=== PATIENT | female | born 1960 | race Caucasian/White ===

== ENCOUNTER → 2017-07-03 16:55 | Outpatient (CLI) | payer MEDICARE ==
[2015-06-14 13:39] VITALS: BMI 31.3
[~2017-07-03 16:55] MED LIST: AGGRENOX 200/251 CAP PO; BENADRYL25 MG PO; CATAPRES0.2 MG PO; CELEXA20 MG PO; CLEOCIN HCL300 MG PO; COREG25 MG PO; CRESTOR10 MG PO; CRESTOR20 MG PO; GABAPENTIN100 MG PO; GLIPIZIDE10 MG PO; HYDRALAZINE HCL25 MG PO; JANUVIA100 MG PO; LEVEMIR100 U/M1 SQ; MEDROL DOSE PACK4 MG PO; MUCINEX DM ER1 EAC1 PO; NORVASC10 MG PO; VALIUM5 MG PO; ZESTRIL40 MG PO
== END | disposition home or self-care (01) ==
LOC: D.US 16:30
DX: M79.662 Pain in left lower leg (principal)

== ENCOUNTER → 2017-10-17 09:20 | Outpatient (CLI) | payer MEDICARE ==
[2015-06-14 13:39] VITALS: BMI 31.3
== END | disposition home or self-care (01) ==
LOC: D.MRI 09:20
DX: M79.672 Pain in left foot (principal)

== ENCOUNTER 2018-02-17 00:25 | Emergency (ER) | payer MEDICARE, MEDICAID ==
[2015-06-14 13:39] VITALS: BMI 31.3
[~2018-02-17 00:25] MED LIST changes: -CRESTOR10 MG PO; +LEVEMIR100 U/M1 SC; -LEVEMIR100 U/M1 SQ
[2018-02-17 00:51] LABS: HEMATOCRIT 40.1 % (36.0-48.0); HEMOGLOBIN 13.7 g/dL (12-16); LYMPHOCYTES 39.9 % (15-50); MCH 31.6 pg (26.0-34.0); MCHC 34.2 g/dL (31.0-37.0); MCV 92.4 fL (80.0-100.0); MEAN PLATELET VOLUME 8.6 fL (7.4-10.4); NEUTROPHILS 43.4 % (40-80); PLATELET COUNT 270 10x3/uL (130-400); RBC 4.34 10x6/uL (4.00-5.40); RDW 11.7 % (11.5-14.5); WBC 6.7 10x3/uL (4.8-10.8)
[2018-02-17 01:12] LABS: ALBUMIN 3.8 g/dL (3.4-5.0); ANION GAP 14.2 mmol/L (8-16); BILIRUBIN - TOTAL 0.42 mg/dL (0.2-1.3); CALCIUM 9.5 mg/dL (8.5-10.1); CARBON DIOXIDE 28.6 mmol/L (21.0-32.0); CREATININE - SERUM 1.2 mg/dL (0.6-1.3); POTASSIUM - SERUM 3.8 mmol/L (3.5-5.1); PROTEIN - SERUM 8.1 g/dL (6.4-8.2)
[2018-02-17 01:38] LABS: APPEARANCE CLOUDY (CLEAR); BILIRUBIN NEGATIVE (NEGATIVE); COLOR YELLOW (YELLOW); GLUCOSE 500 mg/dL (NEGATIVE); KETONE NEGATIVE (NEGATIVE); NITRITE NEGATIVE (NEGATIVE); PROTEIN NEGATIVE (NEGATIVE); UROBILINOGEN NORMAL (NORMAL)
[2018-02-17 01:39] LABS: BACTERIA MANY /hpf (NONE SEEN); HYALINE CAST 0-5 /lpf (NONE SEEN); MUCUS <1+ /lpf (NONE SEEN); RED CELLS - URINE 0-5 /hpf (0-5); WHITE CELLS - URINE 0-5 /hpf (0-5)
[2018-03-17] MEDS ORDERED: COREG25 MG PO (10:54)
[2018-03-17] MEDS ORDERED: AGGRENOX 200/251 CAP PO (10:55)
[2018-03-17] MEDS ORDERED: TRICOR145 MG PO (10:56)
[2018-03-17] MEDS ORDERED: BENADRYL25 MG PO (10:57)
== END 2018-02-17 05:05 | disposition home or self-care (01) ==
LOC: D.ER 00:25
PROVIDERS: Family Medicine
DX: K52.9 Noninfective gastroenteritis and colitis, unspecified (principal); I10 Essential (primary) hypertension; E11.9 Type 2 diabetes mellitus without complications; Z79.4 Long term (current) use of insulin; Q61.3 Polycystic kidney, unspecified

== ENCOUNTER 2018-03-18 07:45 | Day surgery (SDC) | payer MEDICARE ==
[2018-03-17 11:43] LABS: HEMOGLOBIN 12.2 g/dL (12-16); MCH 31.9 pg (26.0-34.0); MCHC 33.9 g/dL (31.0-37.0); MEAN PLATELET VOLUME 9.5 fL (7.4-10.4); RBC 3.83 10x6/uL (4.00-5.40); RDW 12.5 % (11.5-14.5); WBC 7.3 10x3/uL (4.8-10.8)
[2018-03-17 12:02] LABS: ANION GAP 14.1 mmol/L (8-16); CARBON DIOXIDE 28.5 mmol/L (21.0-32.0); CREATININE - SERUM 1.1 mg/dL (0.6-1.3); POTASSIUM - SERUM 4.6 mmol/L (3.5-5.1)
[~2018-03-18] VITALS: Ht 152.4 cm; Wt 60.8 kg
[~2018-03-18 07:45] MED LIST changes: +TRICOR145 MG PO
[2018-03-18 09:09] VITALS: BP 104/63; Ht 152.4 cm; Wt 60.8 kg
[2018-03-18] MEDS ORDERED: HYDROCODON-ACE1 EAC7 PO (13:54)
== END 2018-03-18 18:50 | disposition home or self-care (01) ==
LOC: D.OPS 07:45 → D.PAN 13:30 → D.OPS 18:50
PROVIDERS: Anesthesiology
DX: K80.10 Calculus of gallbladder with chronic cholecystitis without obstruction (principal); I10 Essential (primary) hypertension; E11.9 Type 2 diabetes mellitus without complications; Z01.812 Encounter for preprocedural laboratory examination

== ENCOUNTER 2018-10-19 20:30 | Observation (INO) | payer MEDICARE ==
[~2018-10-19] VITALS: Ht 152.4 cm; Wt 59.8 kg
[~2018-10-19 20:30] MED LIST changes: +HYDROCODON-ACE1 EAC7 PO
[2018-10-19 20:55] LABS: BASOPHILS 0.3 % (0-2); EOSINOPHILS 1.9 % (0-7); HEMATOCRIT 39.5 % (36.0-48.0); HEMOGLOBIN 13.3 g/dL (12-16); IMMATURE GRANULOCYTES 0.3 % (0-5); LYMPHOCYTES 32.8 % (15-50); MCHC 33.7 g/dL (31.0-37.0); MEAN PLATELET VOLUME 9.6 fL (7.4-10.4); MONOCYTES 6.6 % (2-11); NEUTROPHILS 58.1 % (40-80); PLATELET COUNT 256 10x3/uL (130-400); RBC 4.16 10x6/uL (4.00-5.40); RDW 11.9 % (11.5-14.5); WBC 7.3 10x3/uL (4.8-10.8)
[2018-10-19 21:03] LABS: APPEARANCE CLOUDY (CLEAR); COLOR DK YELLOW (YELLOW); NITRITE NEGATIVE (NEGATIVE); PROTEIN TRACE mg/dL (NEGATIVE); SPECIFIC GRAVITY 1.025 (1.005-1.020)
[2018-10-19 21:04] LABS: BILIRUBIN NEGATIVE (NEGATIVE); GLUCOSE 1000 mg/dL (NEGATIVE); KETONE NEGATIVE (NEGATIVE); UROBILINOGEN NORMAL (NORMAL)
[2018-10-19 21:06] LABS: BACTERIA FEW /hpf (NONE SEEN)
[2018-10-19 21:07] LABS: ALBUMIN 3.8 g/dL (3.4-5.0); ANION GAP 15.3 mmol/L (8-16); BILIRUBIN - TOTAL 0.16 mg/dL (0.2-1.3); CALCIUM 9.3 mg/dL (8.5-10.1); CARBON DIOXIDE 25.9 mmol/L (21.0-32.0); CREATININE - SERUM 0.9 mg/dL (0.6-1.3); POTASSIUM - SERUM 4.2 mmol/L (3.5-5.1); PROTEIN - SERUM 7.5 g/dL (6.4-8.2)
[2018-10-19 21:07] LABS: HYALINE CAST 0-5 /lpf (NONE SEEN)
[2018-10-19 21:20] LABS: UDS - AMPHET NEGATIVE QUAL (NEGATIVE); UDS - BARB NEGATIVE QUAL (NEGATIVE); UDS - BENZO POSITIVE QUAL (NEGATIVE); UDS - COCAINE NEGATIVE QUAL (NEGATIVE); UDS - OPIATE NEGATIVE QUAL (NEGATIVE); UDS - PCP NEGATIVE QUAL (NEGATIVE); UDS - THC NEGATIVE QUAL (NEGATIVE)
[2018-10-20] VITALS (14 sets, daily range): BP systolic 100–158; BP diastolic 54–154; Ht 152.4 cm; Wt 59.8 kg
[2018-10-20] MEDS ORDERED: LEVOFLOXACIN500 MG PO (13:43)
--- NOTE | 2018-10-21 17:30 | CN ---
PATIENT NAME:NELSON ALFREDO MEDICAL RECORD: [id number] : 64 LOCATION:[id number] ADMIT DATE: 10/19/18 ACCOUNT: [id number] CONSULTING PHYSICIAN: NICANOR RYAN MD REFERRING PHYSICIAN: INDU LOCKETT MD DATE OF CONSULTATION: 10/20/2018 IDENTIFYING DATA: The patient is a 58-year-old and she is admitted to the hospital on a voluntary basis. CHIEF COMPLAINT: Overdose. HISTORY OF PRESENT ILLNESS: The patient has been very frustrated with her mother. She lives with her mother. The patient had a brainstem stroke about 14 years ago and apparently needs the assistance of her mother who is in her 80s. The patient tells me that she got very angry, frustrated, and took eleven 5 mg tablets of Valium. She says she knew it is probably going to hurt her, but she did it in a very rescuable way in front of her mother and then immediately asked for help. She has not attempted to harm herself before. MENTAL STATUS EXAMINATION: The patient is awake, alert and oriented to person, place, time, and situation. Her mood is euthymic. Her affect is appropriate. Thought processes are goal directed. Memory, concentration, and abstraction abilities are moderately impaired and she mildly impaired and she denies any active intent to harm herself or others as well as psychotic symptoms. ASSESSMENT: 1. Adjustment disorder with mixed emotional features. 2. Personality disorder in the cluster B spectrum. PLAN: The patient in my view is not depressed. She is not psychotic. I do not see evidence of a neurovegetative depressive syndrome. The patient certainly is frustrated, she may well have had a serious depressive illnesses in the past, but she has never been suicidal and she does not have vegetative depressive symptoms that are longstanding at this point, I do not think she is suffering from a major depression at this point and did not think this overdose was related to that. It was impulsive consistent with a personality disorder and would not benefit from inpatient treatment. She is willing to go to outpatient counseling and in fact has been scheduled with a counselor through her primary care physician's office in about 2 weeks. Primary treatment for adjustment disorders and personality disorders is psychotherapeutic on a long-term basis and I have explained this to the patient who is willing to go to long-term therapy. She is not psychotic, delusional, nor she is suffering from a substance abuse disorder or major depressive illness or mood disorder at this point. Her coping skills are primitive, situationally driven and I do not think she would benefit from an inpatient stay. Nevertheless, I did offer this to her as a precaution. She declined it and she certainly does not meet commitment criteria nor do I have any strong opinion that she would benefit from it, but if she felt it would be helpful I was willing to approve an inpatient stay. In my view, she can be released from this hospital once medically stable. Followup will be with her primary care physician. She is to keep the outpatient mental health appointment at her primary care physician's office. TRANSINT:[id number] Voice Confirmation ID: [id number] DOCUMENT ID: [id number] CONSULT REPORT [id number] NELSON ALFREDO, NICANOR PORTILLO at 1730 CC: [id number] DICTATION DATE: 10/20/18 1304 BLEACHER KRAFT PULP: 10/20/18 2220 DIS IN 10/20/18 [facility] [address] [place] [address]
== END 2018-10-20 16:00 | disposition home or self-care (01) ==
LOC: D.ER 20:30 → OBSVTIME 22:39 → D.ICU 22:39 → D.EDHOLD 22:39 → D.ICU 23:21
PROVIDERS: Emergency Medicine; ADMIT Internal Medicine Nephrology
DX: T42.4X2A Poisoning by benzodiazepines, intentional self-harm, initial encounter (principal); F43.20 Adjustment disorder, unspecified; F60.9 Personality disorder, unspecified; E11.9 Type 2 diabetes mellitus without complications; N39.0 Urinary tract infection, site not specified

== ENCOUNTER 2019-01-05 19:00 | Outpatient (CLI) | payer MEDICARE ==
[2018-10-20 10:54] VITALS: BMI 25.8
[~2019-01-05 19:00] MED LIST changes: +LEVOFLOXACIN500 MG PO
== END 2019-01-05 23:59 | disposition home or self-care (01) ==
LOC: D.MAMMO 19:00
PROVIDERS: ATTEND Nurse Practitioner
DX: Z12.31 Encounter for screening mammogram for malignant neoplasm of breast (principal)

== ENCOUNTER 2019-02-12 19:00 | Outpatient (CLI) | payer MEDICARE | END 2019-02-12 23:59 | disposition home or self-care (01) | LOC: D.MAMMO 19:00 | DX: R92.8 Other abnormal and inconclusive findings on diagnostic imaging of breast (principal) ==

== ENCOUNTER → 2019-02-26 08:38 | Outpatient (CLI) | payer MEDICARE ==
[2018-10-20 10:54] VITALS: BMI 25.8
== END | disposition home or self-care (01) ==
LOC: D.US 08:38
PROVIDERS: ATTEND Surgery
DX: R92.8 Other abnormal and inconclusive findings on diagnostic imaging of breast (principal)

== ENCOUNTER 2019-07-27 19:29 | Inpatient (IN) | payer MEDICARE, MEDICAID ==
[~2019-07-27] VITALS: Ht 152.4 cm; Wt 63.6 kg
[2019-07-27] MEDS ORDERED: TRADJENTA5 MG PO (19:56)
[2019-07-27] MEDS ORDERED: HUMULIN R100 U/ML SC (19:57)
--- NOTE | 2019-07-27 20:28 | NUR ---
MENTAL HEALTH NURSE IN TO DO ASSESSMENT. STATES PT IS LOW RISK AND CLEAR FOR DISCHARGE.
--- NOTE | 2019-07-27 20:34 | NUR ---
DOCTOR RYAN NOTIFIED AND REEVIEWED PT BEHAVIOR AND ASSESSMENT RESULTS. PT IS A LOW RISK PER DOCTOR RYAN. DOCTOR RYAN STATED TO GIVE RESOURCES TO PT AT TIME OF DISCHARGE. NO FURTHER ORDERS AT THIS TIME. RESOURCES REVIEWED WITH PT AND SHE VERBALIZED UNDERSTANDING.
[2019-07-27 20:41] LABS: BASOPHILS 0.2 % (0-2); HEMATOCRIT 40.5 % (36.0-48.0); HEMOGLOBIN 13.3 g/dL (12-16); IMMATURE GRANULOCYTES 0.5 % (0-5); LYMPHOCYTES 19.7 % (15-50); MCH 31.9 pg (26.0-34.0); MCHC 32.8 g/dL (31.0-37.0); MCV 97.1 fL (80.0-100.0); MEAN PLATELET VOLUME 9.5 fL (7.4-10.4); MONOCYTES 14.4 % (2-11); NEUTROPHILS 64.2 % (40-80); PLATELET COUNT 260 10x3/uL (130-400); RBC 4.17 10x6/uL (4.00-5.40); RDW 12.4 % (11.5-14.5); WBC 9.4 10x3/uL (4.8-10.8)
[2019-07-27 20:43] LABS: APPEARANCE CLEAR (CLEAR); BILIRUBIN NEGATIVE (NEGATIVE); COLOR YELLOW (YELLOW); GLUCOSE 1000 mg/dL (NEGATIVE); KETONE NEGATIVE (NEGATIVE); NITRITE NEGATIVE (NEGATIVE); PROTEIN NEGATIVE (NEGATIVE); UROBILINOGEN NORMAL (NORMAL)
[2019-07-27 21:04] LABS: ALBUMIN 3.6 g/dL (3.4-5.0); ANION GAP 9.1 mmol/L (8-16); BILIRUBIN - TOTAL 0.31 mg/dL (0.2-1.3); CALCIUM 8.7 mg/dL (8.5-10.1); POTASSIUM - SERUM 4.1 mmol/L (3.5-5.1); PROTEIN - SERUM 7.2 g/dL (6.4-8.2)
[2019-07-27 21:14] VITALS: BP 148/87
[2019-07-27 21:14] LABS: CREATININE - SERUM 1.2 mg/dL (0.6-1.3)
[2019-07-27 21:17] LABS: TROPONIN-I 0.193 ng/mL (0.000-0.060)
--- NOTE | 2019-07-27 22:36 | NUR ---
STOOL FOR GUIAC NEGATIVE.
--- NOTE | 2019-07-28 00:13 | NUR ---
RESTING QUIETLY, RESPIRATIONS REGULAR, WATCHING TV.
[2019-07-28 00:51] VITALS: BP 130/76; BMI 27.3
[2019-07-28 04:30] VITALS: BP 125/78
[2019-07-28 06:14] LABS: BASOPHILS 0.1 % (0-2); EOSINOPHILS 1.6 % (0-7); HEMATOCRIT 36.7 % (36.0-48.0); HEMOGLOBIN 11.9 g/dL (12-16); IMMATURE GRANULOCYTES 0.4 % (0-5); LYMPHOCYTES 19.3 % (15-50); MCH 31.2 pg (26.0-34.0); MCHC 32.4 g/dL (31.0-37.0); MCV 96.3 fL (80.0-100.0); MEAN PLATELET VOLUME 9.7 fL (7.4-10.4); MONOCYTES 15.1 % (2-11); NEUTROPHILS 63.5 % (40-80); PLATELET COUNT 236 10x3/uL (130-400); RBC 3.81 10x6/uL (4.00-5.40); RDW 12.2 % (11.5-14.5); WBC 8.3 10x3/uL (4.8-10.8)
[2019-07-28 07:10] LABS: ALBUMIN 2.8 g/dL (3.4-5.0); ALKALINE PHOSPHATASE 52 U/L (46-116); ALT (SGPT) 18 U/L (10-68); BILIRUBIN - TOTAL 0.33 mg/dL (0.2-1.3); CARBON DIOXIDE 24.7 mmol/L (21.0-32.0); CHLORIDE - SERUM 110 mmol/L (98-107); CKMB 7.6 U/L (0.0-3.6); CREATINE KINASE 47 UL (21-215); CREATININE - SERUM 0.9 mg/dL (0.6-1.3); LIPASE 665 U/L (73-393); POTASSIUM - SERUM 3.9 mmol/L (3.5-5.1); PROTEIN - SERUM 6.4 g/dL (6.4-8.2); SODIUM 145 mmol/L (136-145); eGFR NON AFRICAN AMERICAN 69 mL/min (90-120)
[2019-07-28 07:15] LABS: CALC OSMOLALITY 294 mosm/kg (275-300); GLUCOSE 146 mg/dL (74-106); TROPONIN-I < 0.017 ng/mL (0.000-0.060); UREA NITROGEN 20 mg/dL (7-18)
[2019-07-28 08:39] VITALS: BP 141/86
[2019-07-28 13:16] VITALS: BP 175/91
--- NOTE | 2019-07-28 13:58 | NUR ---
TELEMETRY SR. IV PATENT. CALL LIGHT IN REACH. UP TO CHAIR WITH FAMILY AT BS.
[2019-07-28 14:51] VITALS: BMI 27.3
--- NOTE | 2019-07-28 15:57 | NUR ---
NG TUBED PLACED TO RIGHT NARE TO LIS. WILL MONITOR.
[2019-07-28 18:41] VITALS: BP 158/88
[2019-07-28 19:41] VITALS: Ht 152.4 cm; Wt 63.6 kg
[2019-07-28 20:00] VITALS: BP 155/88
[2019-07-29] VITALS: BP 171/91
[2019-07-29 04:00] VITALS: BP 173/92
--- NOTE | 2019-07-29 04:43 | NUR ---
BP 173/92 PRN HYDRALAZINE GIVEN.
[2019-07-29 06:54] LABS: BASOPHILS 0.3 % (0-2); EOSINOPHILS 1.7 % (0-7); HEMATOCRIT 36.1 % (36.0-48.0); HEMOGLOBIN 11.9 g/dL (12-16); IMMATURE GRANULOCYTES 1.7 % (0-5); LYMPHOCYTES 15.4 % (15-50); MCH 31.2 pg (26.0-34.0); MCV 94.5 fL (80.0-100.0); MEAN PLATELET VOLUME 9.2 fL (7.4-10.4); NEUTROPHILS 68.9 % (40-80); PLATELET COUNT 236 10x3/uL (130-400); RBC 3.82 10x6/uL (4.00-5.40); RDW 12.2 % (11.5-14.5)
[2019-07-29 06:55] LABS: WBC 12.7 10x3/uL (4.8-10.8)
[2019-07-29 07:09] LABS: CALC OSMOLALITY 283 mosm/kg (275-300); CALCIUM 7.9 mg/dL (8.5-10.1); CARBON DIOXIDE 26.5 mmol/L (21.0-32.0); CHLORIDE - SERUM 108 mmol/L (98-107); CREATININE - SERUM 0.7 mg/dL (0.6-1.3); GLUCOSE 113 mg/dL (74-106); POTASSIUM - SERUM 3.6 mmol/L (3.5-5.1); SODIUM 143 mmol/L (136-145); eGFR NON AFRICAN AMERICAN > 90 mL/min (90-120)
[2019-07-29 07:11] LABS: UREA NITROGEN 7 mg/dL (7-18)
--- NOTE | 2019-07-29 07:15 | NUR ---
RECEIVED PT IN BED AAOX4 RESP UNLABORED SKIN W/D COLOR WNL NG TUBE PATENT TO LOW INTERMITTENT SUCTION WILL CONTIUE TO MONITOR
[2019-07-29 13:50] VITALS: BP 138/83
--- NOTE | 2019-07-29 15:42 | NUR ---
NG TUBE CLAMPED PER DR LOCKETT'S VERBAL ORDER
[2019-07-29 17:40] VITALS: BP 163/86
--- NOTE | 2019-07-29 19:10 | NUR ---
PT SITTING UP IN BED WATCHING TV. NO DISTRESS NOTED. SHE STATES SHE IS FEELING REALLY GOOD. DENIES NAUSEA,VOMITTING OR PAIN.SHE IS TOLERATING CLEAR LIQUIDS WITHOUT ANY PROBLEMS.BED LOW AND CALL LIGHT IN REACH.
[2019-07-29 20:00] VITALS: BP 156/92
[2019-07-29 21:47] VITALS: BP 156/92
[2019-07-30] VITALS: BP 163/88
[2019-07-30 00:30] VITALS: BP 163/88
[2019-07-30 04:30] VITALS: BP 177/87
[2019-07-30 05:36] LABS: BASOPHILS 0.2 % (0-2); EOSINOPHILS 1.8 % (0-7); HEMATOCRIT 32.8 % (36.0-48.0); IMMATURE GRANULOCYTES 3.8 % (0-5); LYMPHOCYTES 23.2 % (15-50); MCH 31.7 pg (26.0-34.0); MCHC 33.5 g/dL (31.0-37.0); MCV 94.5 fL (80.0-100.0); MEAN PLATELET VOLUME 9.7 fL (7.4-10.4); MONOCYTES 13.2 % (2-11); NEUTROPHILS 57.8 % (40-80); PLATELET COUNT 249 10x3/uL (130-400); RBC 3.47 10x6/uL (4.00-5.40); RDW 12.2 % (11.5-14.5); WBC 9.8 10x3/uL (4.8-10.8)
[2019-07-30 05:48] LABS: CALC OSMOLALITY 292 mosm/kg (275-300); CALCIUM 8.2 mg/dL (8.5-10.1); CARBON DIOXIDE 29.1 mmol/L (21.0-32.0); CHLORIDE - SERUM 108 mmol/L (98-107); CREATININE - SERUM 0.6 mg/dL (0.6-1.3); GLUCOSE 128 mg/dL (74-106); POTASSIUM - SERUM 3.5 mmol/L (3.5-5.1); SODIUM 148 mmol/L (136-145); eGFR NON AFRICAN AMERICAN > 90 mL/min (90-120)
[2019-07-30 05:59] LABS: UREA NITROGEN 4 mg/dL (7-18)
[2019-07-30 09:39] VITALS: BP 175/89
[2019-07-30] MEDS ORDERED: LEVAQUIN750 MG PO (11:50)
[2019-07-30] MEDS ORDERED: FLAGYL500 MG PO (11:51)
--- NOTE | 2019-07-30 12:50 | NUR ---
Nutrition Follow-up: SBO resolved and NGT removed. Tolerated full liquids this AM; now advanced to [facility]/[place]. Reports she had diarrhea yesterday but now resolved. Plans to d/c today. Diet: [facility]/[place] Wt: 140# Labs reviewed Meds reviewed RD following.
--- NOTE | 2019-07-30 13:02 | MORECARE ---
CASE MANAGEMENT DISCHARGE SUMMARY PATIENT: NELSON ALFREDO UNIT: [id number] ADM DATE: 07/27/19 AGE: 58 : [birth year] SEX: F ROOM/BED: D.7315 AUTHOR: ENRRIQUE,DOC PHYSICIAN: REFERRING PHYSICIAN: INDU LOCKETT MD DATE OF SERVICE: 07/30/19 Discharge Plan Patient Name: NELSON ALFREDO Facility: [facility]:[place] : 1960 Planned Disposition: Home Anticipated Discharge Date: 07/30/19 Discharge Date: Expected LOS: 3 Initial Reviewer: [email or web address] Initial Review Date: 07/30/2019 Generated: 07/30/19 2:01 pm Comments DCP- Discharge Planning Updated by [email or web address]: Manish Knutosn on 07/30/19 12:[address] Patient Name: NELSON ALFREDO Admission Status: ER Accout number: [id number] Admission Date: 07-27-2019 : 1960 Admission Diagnosis: Attending: INDU LOCKETT Current LOS: 3 Anticipated DC Date: 07-30-2019 Planned Disposition: Home Primary Insurance: [employer] CHOICE PPO MCR ADVANT Discharge Planning Comments: CM MET WITH PT IN ROOM TO DISCUSS DISCHARGE PLANNING AND NEEDS. PT REPORTS LIVING AT HOME INDEPENDENTLY WITH HER MOTHER AND UNCLE. PT HAS A WALKING STICK WITH NO MEDICAL EQUIPMENT PROVIDER PREFERENCE. PT HAS NO OUTSIDE SERVICES ASSISTING IN THE HOME. CM DISCUSSED AVAILABILITY OF HOME HEALTH, REHAB SERVICES AND MEDICAL EQUIPMENT. PT DENIES DISCHARGE NEEDS, REPORTS HER UNCLE WILL PICK HER UP FOR DISCHARGE HOME. IMPORTANT MESSAGE FROM MEDICARE PROVIDED AND EXPLAINED. Boot And Shoe Repairman: Manish Knutson DCPIA - Discharge Planning Initial Assessment Updated by [id number]: Manish Knutson on 07/30/19 12:59 pm * Is the patient Alert and Oriented? Yes * How many steps to enter\exit or inside your home? RAMP * PCP [facility] [place] * Pharmacy [facility] * Preadmission Environment Home with Family * ADLs Independent * Equipment Other * Other Equipment WALKING STICK * List name and contact numbers for known caregivers / representatives who currently or will assist patient after discharge: ONEL ALFREDO, MOTHER, * Verbal permission to speak to the caregivers and representatives has been obtained from the patient. N/A * Community resources currently utilized None * Please name any agencies selected above. NONE * Additional services required to return to the preadmission environment? No * Can the patient safely return to the preadmission environment? Yes * Has this patient been hospitalized within the prior 30 days at any hospital? No Coverage Notice Reviewer: [email or web address] Velvet Knutson Notice Issued Date-Time: 07/30/2019 12:05 Notice Type: IM Discharge Notice Notice Delivered To: Patient Relationship to Patient: Revenue Field Auditor Name: Delivery Method: HAND - Hand Delivered Kelly Days: Prior Verbal Notification: Recipient Understood Notice: Yes Recipient Signature: Yes Med Rec Note Co-signed by Attending: Coverage Notice Comment: Patient Name: NELSON ALFREDO Page [phone] at 1302 All edits/amendments must be made on the electronic document DICTATION DATE: 07/30/19 1301 OLD COIN DEALER: BRIANNA 07/30/19 1301 RPT#: [id number] DC DATE: STATUS: ADM IN [facility] [address] [place] [address] END OF REPORT
[2019-07-30 13:31] VITALS: BP 149/79
--- NOTE | 2019-07-30 14:44 | NUR ---
WHEN PATIENT IS QUESTIONED TO GETTING A FLU SHOT UPON DISCHARGE, PATIENT REPORTS THAT SHE WILL RECEIVE ONE FROM [facility].
--- NOTE | 2019-08-02 11:10 | EC ---
PATIENT:NELSON ALFREDO DATE OF SERVICE: 07/27/19 SEX: F MEDICAL RECORD: [id number] DATE OF : 64 LOCATION:D.M2 D.211 AGE OF PATIENT: 58 ADMISSION DATE: 07/27/19 REFERRING PHYSICIAN: INTERPRETING PHYSICIAN: YAIMA CORDON MD ECHOCARDIOGRAM REPORT ECHO CHARGES 4 ECHO COMPLETE Date: 07/28/19 CLINICAL DIAGNOSIS: ELEVATED TROPONIN/HTN ECHOCARDIOGRAPHIC MEASUREMENTS (adult normal given) AC root (d.<3.7cm) 2.4 cm LV Septum d (<1.2 cm> 1.0 cm Valve Excursion 1.3 cm LV Septum (systole) 1.3 cm Left Atria (s.<4.0cm> 4.2 cm LVPW d(<1.2cm) 0.8 cm RV (d.<2.3cm) 1.6 cm LVPW (sytole) 1.3 cm LV diastole(<5.6CM) 4.3 cm MV E-F(>70mm/sec) cm LV systole 2.9 cm LVOT Diameter 1.5 cm MV exc.(>10mm) cm Est.ejection fraction (50-75%) % DOPPLER: LVIT cm/sec A 140 cm/sec E 100 cm/sec LA cm/sec RVSP 22.0 mmHg LVOT 133 cm/sec AOP1/2T m/s Asc. Ao 180 cm/sec RVOT 132 cm/sec RA cm/sec PA 154 cm/sec AV Gradient Peak 13.0 mmHg AV Mean 8.4 mmHg AV Area 1.3 cm MV Gradient Peak 9.9 mmHg MV Mean 4.0 mmHg MV Area cm COMMENTS: Extermination Inspector: Vineet TAOOE It Software Engineer: 1 Dr. Cordon TAPE# PACS Pericardial Effusion N DATE OF SERVICE: FINDINGS: 1. Left ventricular chamber size is within normal limits. Left ventricular systolic function is normal at 60%. 2. Left atrium is enlarged at 4.2 cm. Right atrium and right ventricular chamber sizes are within normal limits. 3. Valvular structures have normal structure and motion. 4. Doppler interrogation reveals no significant valvular insufficiency or stenosis. Pulmonary systolic pressure is estimated at 22 mmHg. ECHOCARDIOGRAM REPORT [id number] NELSON ALFREDO 5. No evidence of pericardial effusion or left ventricular thrombus. TRANSINT:[id number] Voice Confirmation ID: [id number] DOCUMENT ID: [id number] YAIMA CORDON MD at 1110 CC: [id number] DICTATION DATE: 07/29/19 1351 FINANCE CLERK: 07/29/19 1415 DIS IN 07/30/19 [place] [id number] [place] [id number]
== END 2019-07-30 15:35 | disposition home or self-care (01) | DRG 389 ==
LOC: D.ER 19:29 → D.M2 23:16
PROVIDERS: Family Medicine; ADMIT Internal Medicine Nephrology; ATTEND Internal Medicine Nephrology
PROC: 0D9670Z Drainage of Stomach with Drainage Device, Via Natural or Artificial Opening (ICD-10-PCS; principal; 2019-07-28)
DX: K56.609 Unspecified intestinal obstruction, unspecified as to partial versus complete obstruction (principal); N17.9 Acute kidney failure, unspecified; E87.1 Hypo-osmolality and hyponatremia; N20.0 Calculus of kidney; I10 Essential (primary) hypertension; E11.9 Type 2 diabetes mellitus without complications; E78.5 Hyperlipidemia, unspecified; F32.9 Major depressive disorder, single episode, unspecified; R79.89 Other specified abnormal findings of blood chemistry; R19.7 Diarrhea, unspecified; Z86.73 Personal history of transient ischemic attack (TIA), and cerebral infarction without residual deficits

== ENCOUNTER → 2019-09-14 13:54 | Outpatient (CLI) | payer MEDICARE ==
[2019-07-28 19:41] VITALS: BMI 27.3
[~2019-09-14 13:54] MED LIST changes: +FLAGYL500 MG PO; +HUMULIN R100 U/ML SC; +LEVAQUIN750 MG PO; +TRADJENTA5 MG PO
--- NOTE | 2019-09-17 15:28 | ST ---
PATIENT:NELSON ALFREDO MEDICAL RECORD: [id number] SEX: F LOCATION:[facility] ORDER #: ADMISSION DATE: 09/14/19 AGE OF PATIENT: 58 REFERRING PHYSICIAN: INTERPRETING PHYSICIAN: YAIMA DEAN MD DATE OF SERVICE: 09/14/2019 INDICATION: Chest pain, hypertension, hyperlipidemia. She was exercised on standard Te protocol for 6 minutes 30 seconds, terminated due to leg pain, chest pain, shortness of breath. She did have significant ST depression with the symptomatology at peak exercise. OVERALL IMPRESSION: Positive for inducible ischemia at peak exercise suggestive of hemodynamically significant coronary artery disease. TRANSINT:[id number] Voice Confirmation ID: [id number] DOCUMENT ID: [id number] YAIMA DEAN MD at 1528 CC: BRITTANI CHANDLER [id number] DICTATION DATE: 09/15/19 1240 FIELD REVIEWER: 09/15/19 2359 DEP CLI 09/14/19 [address] [address] [id number] [place] [address]
== END | disposition home or self-care (01) ==
LOC: D.HCCARDIO 13:54
PROVIDERS: ATTEND Internal Medicine Interventional Cardiology
DX: I66.9 Occlusion and stenosis of unspecified cerebral artery (principal)

== ENCOUNTER → 2019-09-30 08:58 | Outpatient (CLI) | payer MEDICARE ==
[2019-07-28 19:41] VITALS: BMI 27.3
--- NOTE | ~2019-09-30 | ST ---
PATIENT:NELSON ALFREDO MEDICAL RECORD: [id number] SEX: F LOCATION:[facility] ORDER #: ADMISSION DATE: 09/30/19 AGE OF PATIENT: 59 REFERRING PHYSICIAN: INTERPRETING PHYSICIAN: YAIMA DEAN MD DATE OF SERVICE: 09/30/2019 Nuclear stress test INDICATION: Angina, abnormal regular stress test, hypertension, and hyperlipidemia. The patient was exercised on standard Et protocol for 7 minutes achieving 85% max target heart rate response with 33 mCi of sestamibi injected at peak stress, 11 mCi used previously for rest images. FINDINGS: Gated SPECT reveals preserved ejection fraction at 70% with good wall motioning and thickening and brightening throughout all segments. SPECT IMAGING: Cardiolite was used for myocardial perfusion agent. There is reversibility anteriorly and apically. This includes the basal, mid, apical, anterior segments as well as apex. The degree of reversibility is moderate. The amount of myocardial involved is moderate. OVERALL IMPRESSION: 1. This is an abnormal nuclear stress test, moderate area of reversible ischemia anteriorly and apically. 2. Gated SPECT reveals a preserved ejection fraction at 70%. In this patient with ongoing symptomatology, the current scan does suggest the presence of hemodynamically significant coronary artery disease. TRANSINT:[id number] Voice Confirmation ID: [id number] DOCUMENT ID: [id number] YAIMA DEAN MD CC: [id number] DICTATION DATE: 10/01/19 1415 CHRONIC DISEASE EPIDEMIOLOGIST: 10/02/19 0451 DEP CLI 09/30/19 [facility] [address] [place] [id number]
== END | disposition home or self-care (01) ==
LOC: D.HCCARDIO 09-24 09:00
PROVIDERS: ATTEND Internal Medicine Interventional Cardiology
DX: I66.9 Occlusion and stenosis of unspecified cerebral artery (principal)

== ENCOUNTER 2019-10-18 07:56 | Outpatient (CLI) | payer MEDICARE ==
[~2019-10-18] VITALS: Ht 152.4 cm; Wt 62.7 kg
--- NOTE | ~2019-10-18 | OP ---
PATIENT NAME: NELSON ALFREDO MEDICAL RECORD: [id number] :64 LOCATION:D.CAT ADMISSION DATE: SURGEON: YAIMA DEAN MD DATE OF OPERATION: 10/18/2019 PROCEDURES: 1. PTCA and stent to the left circumflex. 2. PTCA and stent to the LAD. 3. IFR LAD. 4. IFR circumflex. 5. Left heart catheterization. 6. Selective coronary angiography. 7. Left ventriculogram. INDICATIONS: Angina and coronary artery disease. PROCEDURE PERFORMED: Informed consent was obtained after detailed description of risks, benefits as well as alternative therapies, the patient elected to proceed with angiogram and angioplasty. The right femoral area was prepped and draped in normal sterile fashion. Right femoral artery was cannulated via modified Seldinger technique with placement of 6-Palestinian sheath. All catheters exchanged through this sheath. FINDINGS: The left ventriculogram was performed in standard 30-degree THOMAS view, reveals good cardiac wall motion, ejection fraction 65%. SELECTIVE CORONARY ANGIOGRAPHY: 1. Left main is with no significant angiographic disease. 2. Left anterior descending has 70% stenosis proximally and IFR was abnormal at 0.81, this well correlates with the nuclear stress test perfusion defect. 3. The left circumflex is a dominant structure with 70% stenosis in the mid vessel and IFR was abnormal at 0.65. 4. Right coronary is small, nondominant. PTCA AND STENT OF THE LEFT CIRCUMFLEX: The stent used was a 2.75 x 12 mm Chicho. Result was 0% residual stenosis. PTCA AND STENT OF THE LAD: The stent used was a 2.5 x 26 mm Anita. Result was 0% residual stenosis. OVERALL IMPRESSION: Successful percutaneous transluminal angioplasty stent of the anterior descending and left circumflex, both going from 70% initial stenosis to 0% residual. TRANSINT:[id number] Voice Confirmation ID: [id number] DOCUMENT ID: [id number] YAIMA DEAN MD CC: [id number] DICTATION DATE: 10/18/19 1138 ROOMING HOUSE OPERATOR: 10/18/19 1754 DEP CLI 10/18/19 [place] [address] [id number] [place] [address]
--- NOTE | ~2019-10-18 | HEMODYNAMI ---
PATIENT:NELSON ALFREDO MEDICAL RECORD: [id number] : 64 LOCATION:[facility] ADMISSION DATE: 10/18/19 Generatedon:10/18/201911:39 Patient name: NELSON ALFREDO Patient #: [id number] SSN: [id number] : 1960 Date of study: 10/18/2019 Page: Of Hemodynamic Procedure Report Patient Data Patient Demographics Procedure consent was obtained First Name: NELSON Gender: Female Last Name: SAYDA : 1960 [facility] Initial: GEMA Age: 59 year(s) Patient #: [id number] Race: Unknown SSN: [id number] Additional ID: [id number] Contact details [address]: [address] [place] [address] State: [place] City: [place] Zip code: [address] Past Medical History Allergies Allergen Reaction Date Comments Reported Other allergy 10/18/2019 sulfa, bactrim Admission Admission Data Admission Date: 10/18/2019 Admission Time: 7:56 Arrival Date: 10/18/2019 Arrival Time: 0:00 Insurance Payor: Private health insurance Height (in.): 60 BSA: 1.6 (m2) Height (cm.): 152.4 BMI: 27.13 (kg/m2) Weight (lbs.): 138.89 Weight (kg.): 63 Lab Results Lab Result Date: 10/18/2019 Lab Result Time: 0:00 Biochemistry Name Units Result Min Max BUN mg/dl 19 --(----)*- 7 18 Creatinine mg/dl 1.2 --(---*)-- 0.6 1.3 eGFR ml/min 49 *-(----)-- 90 120 NONAFRICAN CBC Name Units Result Min Max Hematocrit % 37 *-(----)-- 42 54 Hemoglobin g/dl 12.4 *-(----)-- 13.5 17.5 Procedure Procedure Types Cath Procedure Diagnostic Procedure LHC LHC w/Coronaries FFR/IVUS FFR Initial FFR Additional Sedation Charges Moderate Sedation up to 15 minutes PCI Procedure Coronary Stent Coronary Stent Initial x2 Hemochron ACT Test Procedure Description Procedure Date Procedure Date: 10/18/2019 Procedure Start Time: 11:08 Procedure End Time: 11:36 Procedure Staff Name Function Dakotah Cordon MD Performing Physician Gracy Zuniga RT Monitor Shira Bowman RT Scrub Felipe Arvizu RN Nurse Procedure Data Cath Procedure Fluoroscopy Diagnostic fluoroscopy Total fluoroscopy Time: 6.1 time: 6.1 min min Diagnostic fluoroscopy Total fluoroscopy dose: 290 dose: 290 mGy mGy Contrast Material Contrast Material Type Amount (ml) Isovue 300 124 Entry Location Entry Primary Successful Side Size Upsize Upsize Entry Closure Succes sful Closure Location (Fr) 1 (Fr) 2 (Fr) Remarks Device Remarks Femoral Right 5 Fr Exoseal artery Estimated blood loss: 10 ml Diagnostic catheters Device Type Used For End Catheter Placement MULTIPACK Pigtail 5 Fr Procedure catheter MULTIPACK JL 4.0 5Fr Procedure catheter MULTIPACK 3DRC 5Fr Procedure catheter Procedure Complications No complications Procedure Medications Medication Administration Route Dosage Oxygen etCO2 Nasal cannula 2 l/min Heparin Flush Bag added to field 2 bags (1000units/500ml NS) 0.9% NaCl I.V. 100 ml/hr Lidocaine 2% added to field 20 Radial Cocktail added to field 1 syringe (Verapamil 2mg/Nitro 400mcg/Heparin 1500units) Versed I.V. 1 mg Fentanyl I.V. 50 mcg Versed I.V. 1 mg Fentanyl I.V. 50 mcg Heparin Bolus I.V. 4000 units Integrilin (Bolus I.V. 5.6 ml 2mg/ml) Integrilin (Bolus wasted 4.4 ml 2mg/ml) Plavix P.O. 600 mg Radial Cocktail wasted 1 syringe (Verapamil 2mg/Nitro 400mcg/Heparin 1500units) Hemodynamics Rest BSA: 1.6 (m2) O2 Consumption: Estimated: 148.39 (ml/min) O2 Consumption indexed: Estimated:92.74 (ml/min/m) Heart Rate: 62 (bpm) Snapshots Pre Cath Intra NCS Post Cath Vital Signs Time Heart Resp SPO2 etCO2 NIBP (mmHg) Rhythm Pain Sedation Rate (ipm) (%) (mmHg) Status Level (bpm) 10:55:52 66 17 99 45 108/70(84) NSR (Missing) 10(A) 10:59:57 66 17 99 42 121/64(81) NSR (Missing) 10(A) 11:04:07 60 16 99 33.8 99/60(75) NSR (Missing) 10(A) 11:08:13 60 17 98 32.2 102/51(77) NSR (Missing) 9(A) 11:12:19 64 17 99 45 102/53(77) NSR (Missing) 9(A) 11:16:20 67 16 99 44.3 96/62(84) NSR (Missing) 9(A) 11:20:20 69 17 99 43.5 107/63(86) NSR (Missing) 9(A) 11:24:26 68 16 99 43.5 102/60(75) NSR (Missing) 9(A) 11:28:28 77 17 98 27.7 115/65(87) NSR (Missing) 9(A) 11:32:29 78 6 98 44.2 127/76(101) NSR (Missing) 9(A) 11:36:41 77 8 98 44.2 106/62(84) NSR (Missing) 9(A) Medications Time Medication Route Dose Verified Delivered Reason Not es Effectiveness by by 10:54:55 Oxygen etCO2 2 l/min Dakotah Wang Per physician Nasal Neris Arvizu RN cannula 10:55:03 Heparin Flush added 2 bags Dakotah Wang used for Bag to Neris Arvizu RN procedure (1000units/500ml field NS) 10:55:14 0.9% NaCl I.V. 100 Dakotah Wang Per physician ml/hr Neris Arvizu RN 10:55:23 Lidocaine 2% added 20ml Dakotah Wang used for to vial Neris Arvizu campus interviews intern field 10:55:32 Radial Cocktail added 1 Dakotah Wang used for (Verapamil to syringe Neris Arvizu RN procedure 2mg/Nitro field 400mcg/Heparin 1500units) 11:05:33 Versed I.V. 1 mg Dakotah Wang for sedation Neris Arvizu RN 11:05:39 Fentanyl I.V. 50 mcg Dakotah Wang for sedation Neris Arvizu RN 11:14:03 Versed I.V. 1 mg Dakotah Wang for sedation Neris Arvizu RN 11:14:12 Fentanyl I.V. 50 mcg Dakotah Wang for sedation Neris Arvizu RN 11:21:58 Heparin Bolus I.V. 4000 Dakotah Wang for units Neris Arvizu RN anticoagulation 11:25:40 Integrilin I.V. 5.6 ml Dakotah Wang for (Bolus 2mg/ml) Neris Arvizu RN anticoagulation 11:25:47 Integrilin wasted 4.4 ml Dakotah Wang for (Bolus 2mg/ml) Neris Arvizu RN anticoagulation 11:34:13 Plavix P.O. 600 mg Dakotah Wang for Neris Arvizu RN antiplatelet therapy 11:34:49 Radial Cocktail wasted 1 Dakotah Wang used for (Verapamil syringe Neris Arvizu RN procedure 2mg/Nitro 400mcg/Heparin 1500units) Procedure Log Time Note 10:26:56 Informed consent obtained and on chart 10:27:21 Procedure Status Elective Heart Cath (OP). 10:27:26 Time tracking: Regular hours (M-F 7:00 - 5:00) 10:27:28 Plan of Care:Hemodynamics will remain stable., Cardiac rhythm will remain stable., Comfort level will be maintained., Respiratory function will remain adequate., Patient/ family verbilizes understanding of procedure., Procedure tolerated without complication., Recovers from procedure without complications.. 10:27:35 H&P Date Dictated: 10/18/2019 New H&P dictated by physician.. 10:27:51 Patient allergic to Other allergysulfa, bactrim 10:28:21 Lab Result : BUN 19 mg/dl 10:28:21 Lab Result : Creatinine 1.2 mg/dl 10:28:21 Lab Result : eGFR NONAFRICAN 49 ml/min 10:28:21 Lab Result : Hemoglobin 12.4 g/dl 10:28:21 Lab Result : Hematocrit 37 % 10:28:37 Stress Test: yes; abnormal ANTERIOR AND APICALLY 10:38:20 Patient Weight : 138.89 lbs 10:38:27 Patient Height : 60 inches 10:38:33 Arrival Date: 10/18/2019 12:00:00 AM 10:38:39 Insurance Payor : Private health insurance 10:39:03 Felipe Arvizu RN sent for patient. Start room use. 10:47:39 Patient received from Pre/Post Procedure Room to CCL 3 Alert and oriented. Tansferred to table in Supine position. 10:47:40 Warm blankets applied, and roman hugger turned on for patient comfort. 10:47:40 Correct patient and procedure confirmed by team. 10:47:41 ECG and BP/O2 sat monitors applied to patient. 10:54:41 Vital chart was started 10:54:55 Oxygen 2 l/min etCO2 Nasal cannula was administered by Felipe Arvizu RN; Per physician; Verbal order read back and verified. 10:55:03 Heparin Flush Bag (1000units/500ml NS) 2 bags added to field was administered by Felipe Arvizu RN; used for procedure; Verbal order read back and verified. 10:55:14 0.9% NaCl 100 ml/hr I.V. was administered by Felipe Arvizu RN; Per physician; Verbal order read back and verified. 10:55:23 Lidocaine 2% 20ml vial added to field was administered by Felipe Arvizu RN; used for procedure; Verbal order read back and verified. 10:55:32 Radial Cocktail (Verapamil 2mg/Nitro 400mcg/Heparin 1500units) 1 syringe added to field was administered by Felipe Arvizu RN; used for procedure; Verbal order read back and verified. 10:56:16 Baseline sample Acquired. 10:56:19 Rhythm: sinus rhythm 10:56:20 Full Disclosure recording started 10:56:20 Pre-procedure instructions explained to patient. 10:56:21 Pre-op teaching completed and patient verbalized understanding. 10:56:22 Family in patients room. 10:56:23 Patient NPO since Midnight. 10:56:25 Is the patient allergic to Iodine/contrast media? No. 10:56:26 Is patient on blood thinner?No 10:56:31 Patient diabetic? Yes. 10:56:32 If diabetic: On Metformin? No 10:56:34 Patient not . Patient is over age 55. 10:56:36 Previous problem with sedation/anesthesia? No ? 10:56:37 Snore? Yes 10:56:38 Sleep apnea? No 10:56:39 Deviated septum? No 10:56:41 Opens mouth fully? Yes 10:56:43 Sticks out tongue? Yes 10:56:48 Airway obstruction? Yes ASTHMA 10:56:51 Dentures? No ? 10:56:54 Modified Kana's test Ulnar < 7 seconds 10:56:57 Pre procedure: right dorsailis pedis pulse 1+ Palpable, but thready & weak; easily obliterated 10:56:59 Patient pain scale 0/10 ?. 10:57:03 IV patent on arrival in left forearm with 0.9% NaCl at O. 10:57:07 Lab results completed and on chart. 10:57:11 Right Radial & Right Groin area was prepped with chlora-prep and draped in sterile fashion 10:57:12 Alarms reviewed by R. N. 10:57:13 Sharps counted by scrub and verified by R.N. 10:57:16 Use device set Radial Dx or PCI 10:57:17 ACIST Syringe (89991) opened to sterile field. 10:57:18 Bag Decanter (2002S) opened to sterile field. 10:57:18 ACIST Hand Control (09648) opened to sterile field. 10:57:19 ACIST Manifold (55987) opened to sterile field. 10:57:19 Tegaderm 4 x 4 (1626W) opened to sterile field. 10:57:20 Medline Cath Pack ([id number]) opened to sterile field. 10:57:20 MBrace Wrist Support ([id number]) opened to sterile field. 10:57:22 EMERALD Guide Wire (885-148) opened to sterile field. 10:57:22 SHEATH 6FR RAIN (2342362) opened to sterile field. 11:01:29 Risk of Mortality: .2 11:01:32 Risk of blood transfusion: 2.7 11:01:35 Risk of SUN: 2.8 11:05:08 --------ALL STOP TIME OUT------ 11:05:10 Final Timeout: patient, procedure, and site verified with staff and physician. All members of the team are in agreement. 11:05:11 Right Radial & Right Groin site verified by team. 11:05:14 Fire Safety Assessment: A--An alcohol-based skin anteseptic being used preoperatively., C--Open oxygen or nitrous oxide is being used., D--An ESU, laser, or fiber-optic light is being used. 11:05:20 Physical assessment completed. ASA score P 2 - A patient with mild systemic disease as per Dakotah Cordon MD. 11:05:24 3a) 45-59 Moderately reduced kidney function. 11:05:27 Maximum allowable contrast dose (3.7 X eGFR X 0.75)136 ml. 11:05:30 Sedation plan: IV Moderate Sedation Medication:Versed, Fentanyl 11:05:33 Versed 1 mg I.V. was administered by Felipe Arvizu RN; for sedation; Verbal order read back and verified. 11:05:39 Fentanyl 50 mcg I.V. was administered by Felipe Arvizu RN; for sedation; Verbal order read back and verified. 11:08:00 Procedure started. 11:08:03 Zero performed for pressure channel P1 11:08:44 Local anesthetic to right radial artery with Lidocaine 2% by Dakotah Cordon MD.INITIAL ACCESS ONLY 11:09:50 UNABLE TO GAIN RADIAL ACCESS. WILL GO GROIN 11:10:19 Use device set Multipack Set 11:10:21 DIAGNOSTIC Multipack 5Fr catheter set (CL4011) opened to sterile field. 11:10:22 SHEATH 5FR [place] (KTR757) opened to sterile field. 11:12:18 Local anesthetic to right femoral artery with Lidocaine 2% by Dakotah Cordon MD.ADDITIONAL ACCESS 11:12:31 A 5 Fr sheath was inserted into the Right Femoral artery 11:12:58 A MULTIPACK Pigtail 5 Fr catheter was advanced over the wire and used for Procedure. 11:13:10 LV gram done using THOMAS 11:13:12 Injector settings: Ml/sec: 10, Volume: 20, 11:13:31 EF : 65 % 11:13:35 Catheter removed. 11:13:40 A MULTIPACK JL 4.0 5Fr catheter was advanced over the wire and used for Procedure. 11:14:03 Versed 1 mg I.V. was administered by Felipe Arvizu RN; for sedation; Verbal order read back and verified. 11:14:12 Fentanyl 50 mcg I.V. was administered by Felipe Arvizu RN; for sedation; Verbal order read back and verified. 11:15:23 LCA angiography performed. 11:15:25 Catheter removed. 11:16:28 A MULTIPACK 3DRC 5Fr catheter was advanced over the wire and used for Procedure. 11:18:04 RCA angiography performed. 11:18:10 Catheter removed. 11:18:12 ACCDominant side:Left 11:18:17 GUIDE 5FR EBU 3.5 catheter ([id number]) opened to sterile field. 11:18:18 [place] Verrata Plus pressure wire (58257N) opened to sterile field. 11:18:18 INFLATOR Merit BasixCompak (KQ7963) opened to sterile field. 11:19:05 5 Fr EBU 3.5 guide catheter was inserted over the wire 11:19:46 FFR/IFR wire advanced. 11:21:29 Wire advanced across lesion. 11:21:40 mLAD lesion measured at .65 with IFR 11:21:52 Wire redirected to CIRC. 11::58 Heparin Bolus 4000 units I.V. was administered by Felipe Arvizu RN; for anticoagulation; Verbal order read back and verified. 11:22:12 Wire advanced across lesion. 11:22:24 mCirc lesion measured at .81 with IFR 11:24:44 Pre PCI Site: [place] mLAD has 70% stenosis. 11:24:50 Pre PCI Site: [place] mCirc has 70% stenosis. 11:25:07 Place stent Inflation Number: [address] RX 2.75 x 12 stent ([id number]) was prepped and advanced across the Mid CX . The stent was deployed at 11 TAVO for 0:00 (min:sec) . 11:25:40 Integrilin (Bolus 2mg/ml) 5.6 ml I.V. was administered by Felipe Arvizu RN; for anticoagulation; Verbal order read back and verified. 11:25:47 Integrilin (Bolus 2mg/ml) 4.4 ml wasted was administered by Felipe Arvizu RN; for anticoagulation; Verbal order read back and verified. 11:25:49 Wire redirected to LAD. 11:26:43 Wire advanced across lesion. 11:28:37 Place stent Inflation Number: [address] RX 2.5 x 26 stent ([id number]) was prepped and advanced across the Mid LAD . The stent was deployed at 11 TAVO for 0:00 (min:sec) . ::58 Stent catheter was removed intact over wire. 11::59 Wire removed. 11::59 Guide catheter removed. 11:29:08 EXOSEAL 5Fr (EX500) opened to sterile field. 11:30:33 Sheath removed intact; hemostasis achieved with Exoseal to the Right Femoral artery. 11:30:37 Procedure ended.(Physican Out) :31:08 Fluoroscopy time 06.10 minutes. 11:31:14 Fluoroscopy dose: 290 mGy 11:31:14 Flurop Dose total: 290 11:31:20 Dose Area Product 1895 mGy/cm. 11:31:29 ACT drawn and resulted at 98 seconds. (normal therapeutic range 180-240 seconds). 11:32:36 Contrast amount:Isovue 300 124ml. 11:32:42 Maximum allowable dose exceeded? No. 11:32:42 Sharps counted by scrub and verified by R.N. 11:32:45 Post-op/insertion site Right Femoral artery dressed using a 4 x 4 and Tegaderm. 11:33:19 Post-procedure physical assessment completed. ASA score P 2 - A patient with mild systemic disease as per Dakotah Cordon MD. 11:33:21 Post procedure rhythm: unchanged. 11:33:24 Estimated blood loss: 10 ml 11:33:25 Post procedure instruction explained to patient.Patient verbalizes understanding. 11:33:25 Patient needs reinforcement of post procedure teaching. 11:33:55 Procedure type changed to Cath procedure, Diagnostic procedure, [facility], [facility] w/Coronaries, FFR/IVUS, FFR Initial, FFR Additional, Sedation Charges, Moderate Sedation up to 15 minutes, PCI procedure, Coronary Stent, Coronary Stent Initial x2, Hemochron ACT Test 11:34:13 Plavix 600 mg P.O. was administered by Felipe Arvizu RN; for antiplatelet therapy; Verbal order read back and verified. 11:34:21 Procedure and supply charges have been captured, reviewed, submitted and are correct. 11:34:23 Procedure Complication : No complications 11:34:27 [facility] Findings: MVD- PCI performed (see procedure note) 11:34:28 Operative report dictated upon procedure completion. 11:34:29 See physician's report for complete and final results. 11:34:31 Report given to Pre/Post Procedure Room. 11:34:33 Patient transfered to Pre/Post Procedure Room with Bed. 11:34:37 ACC-PCI Only Patient was given prescriptions, or instructed by Dakotah Cordon MD to start/continue the following medications upon discharge: Plavix 11:34:49 Radial Cocktail (Verapamil 2mg/Nitro 400mcg/Heparin 1500units) 1 syringe wasted was administered by Felipe Arvizu RN; used for procedure; Verbal order read back and verified. 11:36:11 Vital chart was stopped 11:36:14 Procedure ended. 11:36:14 Full Disclosure recording stopped 11:36:24 End room use (Document Last) 11:38:28 End room use (Document Last) 11:38:57 End room use (Document Last) Intervention Summary Intervention Notes Time ActionType Lesion and Equipment Used Action# Pressure Duration Attributes 11:25:[address] Mid CX CT RX 2.75 x 1 11 00:00 12 stent ([id number]) 11:28:[address] stent Mid LAD CT RX 2.5 x 1 11 00:00 26 stent ([id number]) Device Usage Item Name Manufacture Quantity Catalog Hospital Part Current Minimal Lot# / Number Charge Number Stock Stock Serial# Code ACIST Syringe Acist 1 61524 [id number] 501877 031173 20 (63682) Medical Systems Inc Bag Decanter Microtek 1 2001S 772592 50039 648009 5 (2001S) Medical Inc. ACIST Hand Acist 1 54451 693729 302496 512361 5 Control Medical (63635) Systems Inc ACIST Manifold Acist 1 17484 350448 227171 565026 5 (72762) Medical Systems Inc Tegaderm 4 x 4 3M 1 1626W 649943 105630 137892 5 (1626W) Medline Cath Medline 1 [id number] 605246 19850 553109 5 Pack ([id number]) MBrace Wrist Advanced 1 140-0250-00 253755 78380 819478 5 Support Vascular (139674834) Dynamics EMERALD Guide Cardinal 1 502-455 969943 307109 953344 5 Wire (374-455) Health SHEATH 6FR Cardinal 1 9005500 100073 7917468 791652 5 RAIN (6867384) Health DIAGNOSTIC Cardinal 1 KG6063 311170 36148 974076 30 Multipack 5Fr Health catheter set (WM3940) SHEATH 5FR Terumo 1 XJT927 404613 788944 084712 5 [place] (KCF768) MULTIPACK Cardinal 1 844798 5 Pigtail 5 Fr Health catheter MULTIPACK JL Cardinal 1 552027 5 4.0 5Fr Health catheter MULTIPACK 3DRC Cardinal 1 549393 5 5Fr catheter Health GUIDE 5FR EBU Medtronic 1 [id number] 294403 212325 262221 1 3.5 catheter ([id number]) [place] 1 10388S 838357 699720559 999453 5 Verrata Plus pressure wire (27443I) INFLATOR Merit Merit 1 QD4615 872762 122043 293168 15 [employer] Medical (QC8556) CT RX 2.75 x Medtronic 1 [id number] 493579 9149096 426853 5 [id number] 12 stent ([id number]) CT RX 2.5 x Medtronic 1 [id number] 664368 0349049 293107 5 [id number] 26 stent ([id number]) EXOSEAL 5Fr Cardinal 1 EX500 590374 409290 729289 10 (EX500) Health Signature Audit [place] Stage Time Signature Unsigned Intra-Procedure 10/18/2019 Gracy Zuniga 11:38:28 AM RT(R) Intra-Procedure 10/18/2019 Felipe Arvizu 11:38:57 AM RN Intra-Procedure 10/18/2019 Dakotah Cordon 11:39:13 [place] [address]
--- NOTE | ~2019-10-18 | HP ---
PATIENT: NELSON ALFREDO MEDICAL RECORD: [id number] ACCOUNT: [id number] LOCATION:[facility] : 64 ADMISSION DATE: 10/18/19 PCP: BRITTANI CHANDLER HISTORY AND PHYSICAL EXAMINATION DATE OF SERVICE: 10/18/2019 DIAGNOSES: 1. Angina. 2. Abnormal nuclear stress test, anteroapical ischemia. 3. Hypertension. 4. Hyperlipidemia. 5. Insulin-dependent diabetes. HISTORY OF PRESENT ILLNESS: Mrs. Alfredo presents with anginal symptomatology, underwent stress testing for risk stratification revealing intermediate risk, abnormal nuclear stress test with a moderate amount of anteroapical ischemia. She is now brought for cardiac catheterization due to ongoing anginal symptomatology despite maximal medical therapy with calcium channel henri, beta-henri, JACQUELYN inhibitor, Catapres, and alpha henri. PHYSICAL EXAMINATION: CONSTITUTIONAL/GENERAL APPEARANCE: Well nourished, well developed, appears stated age. EYES: Lids and conjunctivae noninjected. No discharge. No pallor. ENT: Lips within normal limit. No cyanosis. No pallor. NECK: Carotid arteries, bilateral normal upstroke. No bruits. No thrills. No jugular venous pressure or distention. CERVICAL LYMPH NODES: Nontender. Nonenlarged. THYROID: Not enlarged. No nodules. CARDIOVASCULAR: Precordial exam, nondisplaced. No heaves or pericardial thrills. Rate and rhythm, regular. Heart sounds, normal S1, normal S2. No S3, no gallop, no rub. Systolic murmur, not heard. Diastolic murmur, not heard. RESPIRATORY: Respiratory effort, unlabored. Normal curvature. No thoracic deformity. No chest wall tenderness. Percussion, resonant. Auscultation, clear. No wheezes, no rales, no rhonchi. ABDOMEN: Soft, nondistended, nontender. No abdominal pain, no vomiting and normal appetite. MUSCULOSKELETAL: No joint tenderness, normal gait, normal tone. SKIN: Warm and dry. OVERALL IMPRESSION: Anginal symptomatology, abnormal nuclear stress test, most likely she has hemodynamically significant coronary artery disease. We will proceed with coronary angiography. Further care depends upon the findings of the angiography. TRANSINT:[id number] Voice Confirmation ID: [id number] DOCUMENT ID: [id number] HISTORY AND PHYSICAL [id number] NELSON ALFREDO YAIMA MOLINA MD CC: [id number] DICTATION DATE: 10/18/19 1136 GLOBAL RECRUITER: 10/18/19 1151 [facility] [address] [id number]
[~2019-10-18 07:56] MED LIST changes: +LEVEMIR IN100 UNITS/ SC; -LEVEMIR100 U/M1 SC
[2019-10-18 08:44] VITALS: BP 130/66; Ht 152.4 cm; Wt 62.7 kg
[2019-10-18 08:57] LABS: BASOPHILS 0.2 % (0-2); EOSINOPHILS 2.9 % (0-7); HEMOGLOBIN 12.4 g/dL (12-16); IMMATURE GRANULOCYTES 0.2 % (0-5); LYMPHOCYTES 22.7 % (15-50); MCHC 33.5 g/dL (31.0-37.0); MCV 95.4 fL (80.0-100.0); MEAN PLATELET VOLUME 9.6 fL (7.4-10.4); MONOCYTES 6.4 % (2-11); NEUTROPHILS 67.6 % (40-80); PLATELET COUNT 271 10x3/uL (130-400); RBC 3.88 10x6/uL (4.00-5.40); RDW 12.1 % (11.5-14.5); WBC 9.1 10x3/uL (4.8-10.8)
[2019-10-18 09:23] LABS: ANION GAP 15.9 mmol/L (8-16); CALCIUM 9.3 mg/dL (8.5-10.1); CARBON DIOXIDE 24.9 mmol/L (21.0-32.0); CHOL - HDL RATIO 4.9 ratio (2.3-4.1); CREATININE - SERUM 1.2 mg/dL (0.6-1.3); LDL-HDL RATIO 2.4 ratio (1.5-3.5); POTASSIUM - SERUM 4.8 mmol/L (3.5-5.1)
--- NOTE | 2019-10-18 10:07 | NUR ---
DR RYAN NOTIFIED AND REVIEWED PATIENT'S BEHAVIOR AND ASSESSMENT RESULTS. PT IS A LOW RISK PER DR. RYAN. DR RYAN RECOMMENDED TO GIVE RESOURCES TO PT A TIME OF DISCHARGE. DR RYAN ADVISED PATIENT TO REMAIN COMPLIANT WITH HER CURRENT TREATMENT PLAN OF THERAPY AND MEDICATION. PT STATED THAT SHE WAS FULLY COMPLIANT WITH HER MEDICATIONS AND THERAPY AND CONSIDERED HERSELF TO BE AT NO RISK OF SUICIDE. NO FURTHER ORDERS AT THIS TIME. RESOURCES REVIEWED WITH PATIENT AND SHE VERBALIZED UNDERSTANDING.
--- NOTE | 2019-10-18 11:45 | NUR ---
PT RECEIVED VIA STRETCHER FROM [facility]. PT DROWSY BUT VERBALLY AROUSABLE. PT DENIES PAIN OR DISCOMFORT. IV PATENT INFUSING VIA ORDERS TO L ARM. PT PLACED ON CARDIAC MONITORS AND O2 AT 2L/NC. R GROIN W 5FR EXOCELE, DRESSING CDI NO BLEEDING OR S/S HEMATOMA NOTED. LEG PINK AND WARM, PEDAL PULSES PALPABLE. PT INSTRUCTED TO KEEP HEAD ON PILLOW AND LEG STRAIGHT, SHE VERBALIZED UNDERSTANDING. CALL LIGHT IN REACH
[2019-10-18] MEDS ORDERED: BAYER CHEWABLE81 MG PO (11:52)
[2019-10-18] MEDS ORDERED: PLAVIX75 MG PO (11:52)
[2019-10-18] MEDS ORDERED: AGGRENOX 200/251 CAP PO (11:59)
--- NOTE | 2019-10-18 12:15 | NUR ---
PT RESTING COMFORTABLY. R GROIN SOFT, DRESSING CDI NO BLEEDING OR S/S HEMATOMA NOTED. PEDAL PULSES PALPABLE. PT'S UNCLE CALLED PER PT REQUEST AND HE WAS INFORMED OF PT DISCHARGE TIME. PT DENIES PAIN OR DISCOMFORT. HR 75, BP 119/67, RR 10 SAT 97. CALL LIGHT IN REACH.
--- NOTE | 2019-10-18 13:04 | NUR ---
PT RESTING W/O COMPLAINTS. SIPS OF DT COLA GIVEN PER REQUEST. R GROIN SOFT, DRESSING REMAINS CDI NO BLEEDING OR S/S HEMATOMA NOTED. VSS. LEG PINK AND WARM, PEDAL PULSES PALPABLE. CALL LIGHT IN REACH, PT DENIES OTHER NEEDS AT THIS TIME.
--- NOTE | 2019-10-18 13:32 | NUR ---
DR DEAN AT , NO NEW ORDERS RECEIVED. R GROIN SOFT, DRESSING CDI NO BLEEDING OR S/S HEMATOMA NOTED. VSS. CALL LIGHT IN REACH.
--- NOTE | 2019-10-18 13:59 | NUR ---
PT RESTING W/O COMPLAINTS. R GROIN SOFT, NO S/S HEMATOMA NOTED. CALL LIGHT IN REACH, VSS.
--- NOTE | 2019-10-18 14:30 | NUR ---
R GROIN SOFT, DRESSING CDI NO BLEEDING OR S/S HEMATOMA NOTED. HOB ELEVATED SLIGHTLY. SANDWICH TRAY SERVED. VSS. O2 REMOVED, SAT 93 ON ROOM AIR. CALL LIGHT IN REACH
--- NOTE | 2019-10-18 15:04 | NUR ---
PT TOLERATED SANDWICH AND DRINK W/O NAUSEA. R GROIN SOFT, DRESSING REMAINS CDI NO BLEEDING OR S/S HEMATOMA NOTED. VSS. PT VISITING W FAMILY MEMBER. CALL LIGHT IN REACH
--- NOTE | 2019-10-18 15:24 | NUR ---
DISCHARGE INSTRUCTIONS REVIEWED W PT, SHE VERBALIZED UNDERSTANDING. IV REMOVED W CATH INTACT. MONITORS REMOVED. PT INSTRUCTED ON IMPORTANCE OF GETTING PLAVIX FILLED AND START TAKING IT TOMORROW. PT UP TO DRESS FOR DISCHARGE.
--- NOTE | 2019-10-18 15:35 | NUR ---
PT TO BR VIA WC, VOIDING W/O DIFFICULITY. PT THEN DC VIA WC TO FAMILY WAITING IN PRIVATE VEHICLE. PT HAD ALL BELONGINGS AND DISCHARGE INFORMATION IN HAND
== END 2019-10-18 15:35 | disposition home or self-care (01) ==
LOC: D.CATH 07:56
PROVIDERS: ATTEND Internal Medicine Interventional Cardiology
DX: I25.119 Atherosclerotic heart disease of native coronary artery with unspecified angina pectoris (principal); R94.39 Abnormal result of other cardiovascular function study; I66.9 Occlusion and stenosis of unspecified cerebral artery; I10 Essential (primary) hypertension; E78.5 Hyperlipidemia, unspecified; E11.9 Type 2 diabetes mellitus without complications; Z79.4 Long term (current) use of insulin
CPT/HCPCS: 93458; 93571; 93572; C9600 ×2

== ENCOUNTER 2020-02-21 08:57 | Emergency (ER) | payer MEDICARE ==
[~2020-02-21] VITALS: Ht 152.4 cm; Wt 60.5 kg
[~2020-02-21 08:57] MED LIST changes: +BAYER CHEWABLE81 MG PO; +PLAVIX75 MG PO
[2020-02-21 09:09] VITALS: Ht 152.4 cm; Wt 60.5 kg
[2020-02-21 09:38] LABS: BASOPHILS 0.1 % (0-2); EOSINOPHILS 1.3 % (0-7); HEMATOCRIT 39.7 % (36.0-48.0); HEMOGLOBIN 12.9 g/dL (12-16); IMMATURE GRANULOCYTES 0.2 % (0-5); LYMPHOCYTES 9.8 % (15-50); MCH 31.6 pg (26.0-34.0); MCHC 32.5 g/dL (31.0-37.0); MCV 97.3 fL (80.0-100.0); MEAN PLATELET VOLUME 8.8 fL (7.4-10.4); MONOCYTES 6.3 % (2-11); NEUTROPHILS 82.3 % (40-80); PLATELET COUNT 284 10x3/uL (130-400); RBC 4.08 10x6/uL (4.00-5.40); RDW 12.5 % (11.5-14.5); WBC 14.2 10x3/uL (4.8-10.8)
[2020-02-21 09:49] LABS: ANION GAP 11.5 mmol/L (8-16); CALCIUM 9.6 mg/dL (8.5-10.1); CARBON DIOXIDE 28.7 mmol/L (21.0-32.0); POTASSIUM - SERUM 4.2 mmol/L (3.5-5.1)
[2020-02-21 09:54] LABS: ALBUMIN 3.9 g/dL (3.4-5.0); BILIRUBIN - TOTAL 0.2 mg/dL (0.2-1.3); PROTEIN - SERUM 7.7 g/dL (6.4-8.2)
[2020-02-21 10:29] LABS: BILIRUBIN NEGATIVE (NEGATIVE); EPITHELIAL CELLS 0-5 /hpf (0-5); GLUCOSE NEGATIVE (NEGATIVE); KETONE NEGATIVE (NEGATIVE); NITRITE POSITIVE (NEGATIVE); SPECIFIC GRAVITY 1.015 (1.005-1.020); UROBILINOGEN NORMAL (NORMAL); WHITE CELLS - URINE >50 /hpf (NEGATIVE)
[2020-02-21 10:31] LABS: BACTERIA MANY /hpf (NEGATIVE)
[2020-02-21] MEDS ORDERED: MACROBID100 MG PO (11:12)
[2020-02-21 12:06] VITALS: BP 123/72
== END 2020-02-21 12:19 | disposition home or self-care (01) ==
LOC: D.ER 08:57
PROVIDERS: Family Medicine
DX: E11.649 Type 2 diabetes mellitus with hypoglycemia without coma (principal); N39.0 Urinary tract infection, site not specified; Z86.73 Personal history of transient ischemic attack (TIA), and cerebral infarction without residual deficits; I10 Essential (primary) hypertension; Z79.4 Long term (current) use of insulin; Z79.84 Long term (current) use of oral hypoglycemic drugs; R10.30 Lower abdominal pain, unspecified

== ENCOUNTER → 2020-03-22 16:54 | Outpatient (CLI) | payer MEDICARE ==
[2020-02-21 09:09] VITALS: BMI 26.0
[~2020-03-22 16:54] MED LIST changes: +MACROBID100 MG PO
[2020-03-22 17:50] LABS: CHOL - HDL RATIO 3.5 ratio (2.3-4.1); LDL-HDL RATIO 1.9 ratio (1.5-3.5)
== END | disposition home or self-care (01) ==
LOC: D.LABREF 16:54
PROVIDERS: ATTEND Nurse Practitioner Adult Health
DX: E78.5 Hyperlipidemia, unspecified (principal)

== ENCOUNTER 2020-04-25 11:16 | Inpatient (IN) | payer MEDICARE ==
[~2020-04-25] VITALS: Ht 152.4 cm; Wt 58.1 kg
[2020-04-25 12:14] LABS: BASOPHILS 0.1 % (0-2); EOSINOPHILS 3.1 % (0-7); HEMATOCRIT 38.7 % (36.0-48.0); HEMOGLOBIN 12.9 g/dL (12-16); IMMATURE GRANULOCYTES 0.3 % (0-5); LYMPHOCYTES 6.5 % (15-50); MCH 32.3 pg (26.0-34.0); MCHC 33.3 g/dL (31.0-37.0); MEAN PLATELET VOLUME 9.4 fL (7.4-10.4); MONOCYTES 4.6 % (2-11); NEUTROPHILS 85.4 % (40-80); PLATELET COUNT 289 10x3/uL (130-400); RBC 3.99 10x6/uL (4.00-5.40); RDW 11.9 % (11.5-14.5); WBC 19.6 10x3/uL (4.8-10.8)
--- NOTE | 2020-04-25 12:34 | NUR ---
URINE TO LAB AT THIS TIME.
[2020-04-25 12:40] LABS: ALBUMIN 3.8 g/dL (3.4-5.0); ALKALINE PHOSPHATASE 130 U/L (30-120); ALT (SGPT) 25 U/L (10-68); AMYLASE - SERUM 60 U/L (25-115); BILIRUBIN - TOTAL 0.35 mg/dL (0.2-1.3); CALC OSMOLALITY 294 mosm/kg (275-300); CALCIUM 8.8 mg/dL (8.5-10.1); CARBON DIOXIDE 26.9 mmol/L (21.0-32.0); CHLORIDE - SERUM 102 mmol/L (98-107); CREATININE - SERUM 1.2 mg/dL (0.6-1.3); LIPASE 133 U/L (73-393); POTASSIUM - SERUM 4.2 mmol/L (3.5-5.1); PROTEIN - SERUM 7.3 g/dL (6.4-8.2); SODIUM 136 mmol/L (136-145); TROPONIN-I < 0.017 ng/mL (0.000-0.060); UREA NITROGEN 20 mg/dL (7-18); eGFR NON AFRICAN AMERICAN 49 mL/min (90-120)
[2020-04-25 12:52] LABS: BILIRUBIN NEGATIVE (NEGATIVE); GLUCOSE 1000 mg/dL (NEGATIVE); KETONE NEGATIVE (NEGATIVE); NITRITE NEGATIVE (NEGATIVE); UROBILINOGEN NORMAL (NORMAL); WHITE CELLS - URINE 0-5 /hpf (NEGATIVE)
[2020-04-25 12:53] LABS: BACTERIA FEW /hpf (NEGATIVE); EPITHELIAL CELLS 0-5 /hpf (0-5); RED CELLS - URINE OCC /hpf (0-5); YEAST <1+ /hpf (NONE SEEN)
[2020-04-25 13:20] LABS: GLUCOSE 456 mg/dL (74-106)
[2020-04-25 14:01] VITALS: BP 108/63; BMI 25.0
--- NOTE | 2020-04-25 14:16 | NUR ---
PT RESTING IN BED IN ED. ADMISSION ASSESSMENT COMPLETE. PT IS ALERT AND ORIENTED. C/O OF PREVIOUS SEVERE ABD PAIN AND ACID REFLUX. PT IS ON RA. IV TO RT FA IS PATENT, NS AND ABX INFUSING AT THIS TIME. PT DENIES NEEDS. FAMILY BROUGHT IN PATIENT BELONGINGS.
[2020-04-25 14:39] LABS: ANION GAP 12.7 mmol/L (8-16); CARBON DIOXIDE 21.6 mmol/L (21.0-32.0); CREATININE - SERUM 0.9 mg/dL (0.6-1.3); POTASSIUM - SERUM 4.3 mmol/L (3.5-5.1)
[2020-04-25 15:00] VITALS: BP 133/72
[2020-04-25 16:00] VITALS: BP 134/72
[2020-04-25 17:00] VITALS: BP 131/61
--- NOTE | 2020-04-25 18:41 | NUR ---
SHE IS ALERT, TALKING. DR. BORGES IS IN THE ROOM DOING HIS ASSESSMENT. THE CALL LIGHT IS WITHIN REACH.
--- NOTE | 2020-04-25 19:59 | NUR ---
PT ALERT AND ORIENTED SITTING UP IN BED TALKING TO US. PT FSBS 84 ACHS PT. BP MEDS HELD BY DOC. NO S/S OF DISTRESS AT THIS TIME. BED LOW CALL LIGHTR WITHIN REACH. WILL CONTINUE TO MONITR.
[2020-04-25 20:00] VITALS: BP 133/80
[2020-04-26] VITALS: BP 156/74
--- NOTE | 2020-04-26 01:01 | NUR ---
PT RESTING IN BED A/O X4. RR EVEN AND UNLABORED. NO S/S OF DISTRESS. PT DENIES ANY PAIN OR NEEDS AT THIS TIME. BED LOW CALL LIGHT WITHIN REACH. WILL CONTINUE TO MONITOR.
[2020-04-26 04:00] VITALS: BP 142/86
--- NOTE | 2020-04-26 05:10 | NUR ---
I have reviewed this patient and I concur with the Shift Assessment completed by the Licensed Practical Nurse today this shift.
[2020-04-26 06:03] LABS: BASOPHILS 0.2 % (0-2); EOSINOPHILS 16.4 % (0-7); HEMATOCRIT 36.3 % (36.0-48.0); HEMOGLOBIN 12.1 g/dL (12-16); IMMATURE GRANULOCYTES 0.1 % (0-5); LYMPHOCYTES 23.2 % (15-50); MCH 31.8 pg (26.0-34.0); MCHC 33.3 g/dL (31.0-37.0); MCV 95.3 fL (80.0-100.0); MEAN PLATELET VOLUME 9.4 fL (7.4-10.4); MONOCYTES 6.6 % (2-11); NEUTROPHILS 53.5 % (40-80); PLATELET COUNT 241 10x3/uL (130-400); RBC 3.81 10x6/uL (4.00-5.40)
[2020-04-26 06:18] LABS: WBC 8.2 10x3/uL (4.8-10.8)
[2020-04-26 06:42] LABS: ALBUMIN 3.2 g/dL (3.4-5.0); ANION GAP 10.9 mmol/L (8-16); BILIRUBIN - TOTAL 0.15 mg/dL (0.2-1.3); CALCIUM 8.8 mg/dL (8.5-10.1); CARBON DIOXIDE 26.5 mmol/L (21.0-32.0); CREATININE - SERUM 0.9 mg/dL (0.6-1.3); POTASSIUM - SERUM 4.4 mmol/L (3.5-5.1); PROTEIN - SERUM 6.4 g/dL (6.4-8.2)
[2020-04-26 09:50] VITALS: BP 155/81
--- NOTE | 2020-04-26 10:18 | NUR ---
PT ALERT X 4. BREATH SOUNDS CLEAR BILAT. BOWEL SOUNDS HYPOACTIVE TO RIGHT SIDE. IV TO RIGHT FOREARM, PATENT, DRESSING CDI. PT REPORTING TENDERNESS TO LOWER ABDOMEN. BED LOW, CALL LIGHT IN REACH. NO OTHER NEEDS AT THIS TIME.
[2020-04-26 13:28] VITALS: BP 116/61; BP 168/79
[2020-04-26 13:55] VITALS: Ht 152.4 cm; Wt 58.1 kg
[2020-04-26] MEDS ORDERED: PLAVIX75 MG PO (15:13)
[2020-04-26] MEDS ORDERED: LEVAQUIN750 MG PO (15:14)
[2020-04-26] MEDS ORDERED: FLAGYL500 MG PO (15:14)
[2020-04-26 15:41] LABS: BASOPHILS 0.2 % (0-2); EOSINOPHILS 10.3 % (0-7); HEMATOCRIT 38.4 % (36.0-48.0); HEMOGLOBIN 12.8 g/dL (12-16); IMMATURE GRANULOCYTES 0.2 % (0-5); LYMPHOCYTES 19.2 % (15-50); MCH 31.5 pg (26.0-34.0); MCHC 33.3 g/dL (31.0-37.0); MCV 94.6 fL (80.0-100.0); MEAN PLATELET VOLUME 9.2 fL (7.4-10.4); NEUTROPHILS 65.1 % (40-80); PLATELET COUNT 265 10x3/uL (130-400); RBC 4.06 10x6/uL (4.00-5.40); WBC 9.3 10x3/uL (4.8-10.8)
[2020-04-26 15:50] LABS: CALCIUM 8.8 mg/dL (8.5-10.1); CARBON DIOXIDE 25.3 mmol/L (21.0-32.0); CHLORIDE - SERUM 104 mmol/L (98-107); CREATININE - SERUM 0.8 mg/dL (0.6-1.3); SODIUM 137 mmol/L (136-145); eGFR NON AFRICAN AMERICAN 78 mL/min (90-120)
[2020-04-26 15:51] LABS: CALC OSMOLALITY 278 mosm/kg (275-300); GLUCOSE 237 mg/dL (74-106); UREA NITROGEN 4 mg/dL (7-18)
--- NOTE | 2020-04-26 18:08 | NUR ---
DISCHARGE PAPERWORK SIGNED, ALL QUESTIONS ANSWERED. IV TO RIGHT FOREARM DC'D, TIP INTACT. PT REQUESTED TO AMBULATE OUT.
== END 2020-04-26 18:09 | disposition home or self-care (01) | DRG 392 ==
LOC: D.ER 11:16 → D.MS 14:15
PROVIDERS: Emergency Medicine; Family Medicine; ADMIT Family Medicine; ATTEND Family Medicine
DX: K52.9 Noninfective gastroenteritis and colitis, unspecified (principal); N39.0 Urinary tract infection, site not specified; F32.9 Major depressive disorder, single episode, unspecified; M19.90 Unspecified osteoarthritis, unspecified site; I25.10 Atherosclerotic heart disease of native coronary artery without angina pectoris; E11.9 Type 2 diabetes mellitus without complications; R16.0 Hepatomegaly, not elsewhere classified; K76.0 Fatty (change of) liver, not elsewhere classified; N20.0 Calculus of kidney; R10.9 Unspecified abdominal pain; I10 Essential (primary) hypertension

== ENCOUNTER 2020-07-13 13:30 | Outpatient (CLI) | payer MEDICARE ==
[2020-04-26 13:55] VITALS: BMI 24.9
== END 2020-07-13 23:59 | disposition home or self-care (01) ==
LOC: D.MAMMO 13:30
PROVIDERS: ATTEND Nurse Practitioner
DX: Z12.31 Encounter for screening mammogram for malignant neoplasm of breast (principal)